=== PATIENT | female | born 1935 | race Caucasian/White ===

== ENCOUNTER 2019-04-28 11:38 | Emergency (ER) | payer MEDICARE, OTHER, SELFPAY ==
[2019-04-28 11:40] VITALS: BP 82/42; PULSE 61; RESP 18; TEMP 36.1; O2SAT 95; BMI 27.2
--- NOTE | 2019-04-28 12:14 | CT_ITS ---
STUDY: CT BRAIN WITHOUT CONTRAST REASON FOR EXAM: Female, 84 years old. Weakness RADIATION DOSAGE (If Supplied By Facility): CTDIvol = ( 44.99 ) mGy, DLP = ( 829.85 ) mGycm TECHNIQUE: Transaxial CT imaging of the brain was performed without administration of intravenous contrast material. Individualized dose optimization techniques were used for this CT. COMPARISON: No relevant priors. FINDINGS: Normal soft tissue structures. Normal calvarium. There is moderate cerebral atrophy with widening of the extra-axial spaces and ventricular dilatation. There are areas of decreased attenuation within the white matter tracts of the supratentorial brain, consistent with microvascular disease changes. Normal basal ganglia and thalami. Normal brainstem. There is mild cerebellar atrophy. There is no intracranial hemorrhage. There are no findings of an acute ischemic infarction. Normal visualized paranasal sinuses. CT/Brain/Head without Contrast IMPRESSION: Chronic involutional changes of the brain. Electronically Signed: Abel Gross DO at 13:23 EDT Tel , Service support ,
--- NOTE | 2019-04-28 12:15 | EKG12_ITS ---
Test Reason : Blood Pressure : / mmHG Vent. Rate : 060 BPM Atrial Rate : 060 BPM P-R Int : 154 ms QRS Dur : 166 ms QT Int : 528 ms P-R-T Axes : 000 -81 096 degrees QTc Int : 528 ms AV dual-paced rhythm Abnormal ECG Confirmed by ILIA ROBISON, JORDAN ([id number]), associate editor TIFFANY GABRIEL ([id number]) on 04/30/2019 1:51:49 PM Referred By: KOURTNEY Confirmed By:JORDAN MORILLO MD
[2019-04-28 12:22] LABS: Absolute Lymphocyte Count 0.89 X10^3/uL (0.83-4.51); Absolute Neutrophil Count 4.1 X10^3/uL (2.0-7.7); Basophil# 0.06 X10^3/uL; Eosinophil# 0.05 X10^3/uL; Eosinophils% 0.9 % (0-5); Hemoglobin 11.4 g/dL (12.0-15.0); Lymphocyte # 0.89 X10^3/ul (4.0); Lymphocyte % 15.4 % (19-41); Mean Corp Hgb Conc 30.8 g/dL (32-36); Mean Corpuscular Hgb 24.7 pg (27.0-32.0); Mean Corpuscular Volume 80.3 fL (81-99); Mean Platelet Vol. 10.9 fl (6.2-12.0); Monocyte# 0.64 X10^3/uL; Monocyte% 11.1 % (0-10); NRBC Flagged by Analyzer 0 % (0-5); Neutrophil # 4.14 X10^3/uL (2.7-7.7); Neutrophil % 71.4 % (47-70); Platelet Count 188 K/mm3 (150-450); RBC Distribution Width CV 16.6 % (11.6-14.6); RBC Distribution Width SD 48.8 fl (35.1-43.9); Red Blood Count 4.61 M/mm3 (4.2-5.4); White Blood Count 5.8 K/mm3 (4.4-11.0)
[2019-04-28 12:32] LABS: International Normalized Ratio 1.1; Prothrombin Time (Protime)PT. 14.3 SECONDS (11.7-14.9)
[2019-04-28 12:33] LABS: Partial Thromboplast Time 29.6 Seconds (24.1-36.2)
[2019-04-28 12:45] LABS: AST(SGOT) 48 U/L (15-37); Alanine Aminotransfer ALT/SGPT 26 U/L (13-56); Alkaline Phosphatase 142 U/L (45-117); Anion Gap 3 (5-15); BUN 15 mg/dL (7-18); Bilirubin, Direct 0.23 mg/dL (0.00-0.30); Calcium,Total 9.2 mg/dL (8.5-10.1); Chloride 107 mmol/L (98-107); Creatinine, Serum 1.25 mg/dL (0.55-1.02); EST Glomerular Filtration Rate 43 mL/min (>60); Est Glom Filt Rate - Afr Amer 53 mL/min (>60); Estimated Creatinine Clearance 36.23 ml/min; Globulin 3.9 g/dL (2.2-4.2); Glucose 103 mg/dL (74-106); Lipase 64 U/L (73-393); Potassium 4.6 mmol/L (3.5-5.1); Protein, Total 6.9 g/dL (6.4-8.2); Sodium Level 139 mmol/L (136-145)
[2019-04-28 13:04] VITALS: BP 111/57; PULSE 61; RESP 15; O2SAT 98
--- NOTE | 2019-04-28 13:06 | ED.RN ---
PT ADAMANTLY REFUSES TO GIVE URINE SAMPLE
[2019-04-28] MEDS: 0.9% Normal Saline 1,000 ML 150 ML IV (13:15)
[2019-04-28 14:00] VITALS: BP 130/68; PULSE 60; RESP 16; O2SAT 100
--- NOTE | 2019-04-28 14:52 | ED.VIS.GEN ---
History of Present Illness Chief Complaint: Dizziness Detail of Chief Complaint: Weakness Informant: Patient, Family Onset: Yesterday Narrative: Patient presents with her family. She is currently visiting [facility] to go to a [place]. Family feels that she looks pale and has been dizzy. Family states that she seemed off balance when trying to get into her wheelchair. Patient denies chest pain or shortness of breath. She wants to fall asleep easily but she states she does that because she does not sleep well at night. - Past Medical History (1) CHF (congestive heart failure) Status: Chronic (2) High cholesterol Status: Chronic (3) Hypertension Status: Chronic (4) Pacemaker Status: Chronic (5) COPD (chronic obstructive pulmonary disease) Status: Chronic (6) Anxiety Status: Chronic (7) Cervical cancer Status: Chronic Past Medical History - Allergies and Home Meds Allergies/Adverse Reactions: Allergies Penicillins [PCN] Allergy (Verified 04/28/19 11:40) Hives Sulfa (Sulfonamide Antibiotics) Allergy (Verified 04/28/19 11:40) Hives Primary Care Physician: [facility] Doctor,Out of [Primary Care Provider] - Prior records reviewed: Yes - Reviewed records available in [facility] Past Medical History: - Smoking Status: Never smoker Review of Systems General: Denies: Chills, Fever Eyes: Denies: Visual changes - left, Visual changes - right ENT: Denies: Bilateral ear pain Cardiovascular: Denies: Chest pain, Palpitations, Heart racing Respiratory: Denies: Dyspnea, Cough Gastrointestinal: Denies: Abdominal pain, Nausea, Vomiting, Diarrhea Genitourinary: Denies: Dysuria Musculoskeletal: Denies: Neck pain, Back pain, Extremity Pain Skin: Denies: Rash Neurological: Reports: Weakness - Generalized weakness. Denies: Headache Endocrine: Denies: Polyuria, Polydipsia Allergy: Denies: Uticaria Physical Exam Vital Signs/Narrative: Vital Signs Temp Pulse Resp BP Pulse Ox 04/28/19 14:00 60 16 130/68 H 100 04/28/19 13:04 61 15 111/57 L 98 04/28/19 11:40 97 F L 61 18 82/42 L 95 General: Cachectic Head: Normocephalic, Atraumatic ENT: Moist mucous membranes Cardiovascular: Regular rate, Regular rhythm Respiratory: No distress, CTA bilaterally Abdomen: Soft, Nontender, Normal bowel sounds Extremities: Nontender, Edema - 2+ and symmetric. Mild chronic venous skin changes noted. No cellulitis. Skin: Pallor Neurological: Alert, Oriented x3 Psychological: - - Anxious Diagnostic/Tx/Re-eval Impressions Brain CT 04/28/19 12:14 IMPRESSION: Chronic involutional changes of the brain. Electronically Signed: Abel Gross DO at 13:23 EDT Tel , Service support , 04/28/19 12:14 Brain/Head without Contrast [CT] Stat Laboratory Results 04/28/19 04/28/19 04/28/19 11:55 11:55 11:55 WBC 5.8 RBC 4.61 Hgb 11.4 L Hct 37.0 MCV 80.3 L MCH 24.7 L MCHC 30.8 L RDW Std Deviation 48.8 H RDW Coeff of Thad 16.6 H Plt Count 188 MPV 10.9 Immature Gran % (Auto) 0.200 Neut % (Auto) 71.4 H Lymph % (Auto) 15.4 L Swain % (Auto) 11.1 H Eos % (Auto) 0.9 Baso % (Auto) 1.0 Absolute Neuts (auto) 4.1 Absolute Lymphs (auto) 0.89 Absolute Nucleated RBC 0.00 Nucleated RBC % 0 PT 14.3 INR 1.1 APTT 29.6 Sodium 139 Potassium 4.6 Chloride 107 Carbon Dioxide 29.0 Anion Gap 3 L BUN 15 Creatinine 1.25 H Estim Creat Clear Calc 36.23 Est GFR (MDRD) Af Amer 53 L Est GFR (MDRD) Non-Af 43 L BUN/Creatinine Ratio 12.0 Glucose 103 Calcium 9.2 Total Bilirubin 0.80 Direct Bilirubin 0.23 AST 48 H ALT 26 Alkaline Phosphatase 142 H Ammonia Troponin I 0.090 H Total Protein 6.9 Albumin 3.0 L Globulin 3.9 Lipase 64 L 04/28/19 04/28/19 12:30 14:00 WBC RBC Hgb Hct MCV MCH MCHC RDW Std Deviation RDW Coeff of Thad Plt Count MPV Immature Gran % (Auto) Neut % (Auto) Lymph % (Auto) Swain % (Auto) Eos % (Auto) Baso % (Auto) Absolute Neuts (auto) Absolute Lymphs (auto) Absolute Nucleated RBC Nucleated RBC % PT INR APTT Sodium Potassium Chloride Carbon Dioxide Anion Gap BUN Creatinine Estim Creat Clear Calc Est GFR (MDRD) Af Amer Est GFR (MDRD) Non-Af BUN/Creatinine Ratio Glucose Calcium Total Bilirubin Direct Bilirubin AST ALT Alkaline Phosphatase Ammonia 16.0 Troponin I 0.083 H Total Protein Albumin Globulin Lipase - EKG Initial EKG Interpretation: - - Paced at [address] change. - Medical Decision Making Patient presented with hypotension, blood pressure 82/42. On review of prior records from clinic think her most recent doctor's appointment revealed a systolic blood pressure of 102 at that time. Patient admits that she falls asleep easily because she does not sleep well at night. She would fall asleep easily during our conversation. She denied chest pain, shortness of breath, abdominal pain, vomiting, or diarrhea. Work-up does reveal slight elevation in troponin, but I do not have prior values available to compare to here. Prior troponin values found through [facility] do not use the same type of troponin testing that we do. I am unable to directly correlate this. Her repeat troponin is coming down slightly. It does appear that her renal function has slightly worsened. She has been given IV fluids here and blood pressure has been in the 130s systolic. I had a long conversation with family at bedside. They state that she has been essentially living for this trip to [place] to see this performance tonight. She has told them multiple times this is the last thing she wants to do, then go home and . Patient is very adamant that she is not staying in the hospital. She is alert and oriented at this time. I advised her of her test results. She states that she will return if she worsens and go see her doctor soon as she returns home. ED Disposition - Plan for ED Patient: Disposition: Home or Assisted Living Diagnosis: Dehydration, Generalized weakness Instructions: DEHYDRATION (6y-Adult) Referrals: [facility] Doctor,Out of [Primary Care Provider] - Additional Instructions: Your troponin value (for your heart) is slightly elevated. (0.090 -> 0.083) Please follow-up with your doctor immediately upon returning home.
[2019-04-28 15:08] VITALS: BP 148/75; PULSE 60; RESP 16; O2SAT 99
== END 2019-04-28 15:00 | disposition home or self-care (01) ==
PROVIDERS: Emergency Provider Emergency Medicine
DX: E86.0 Dehydration (principal); I95.9 Hypotension, unspecified; R53.1 Weakness; R74.8 Abnormal levels of other serum enzymes; J44.9 Chronic obstructive pulmonary disease, unspecified; I11.0 Hypertensive heart disease with heart failure; I50.9 Heart failure, unspecified; E78.00 Pure hypercholesterolemia, unspecified; F41.9 Anxiety disorder, unspecified; Z79.82 Long term (current) use of aspirin; Z79.899 Other long term (current) drug therapy; Z88.0 Allergy status to penicillin; Z88.2 Allergy status to sulfonamides; Z95.0 Presence of cardiac pacemaker; Z85.41 Personal history of malignant neoplasm of cervix uteri
CPT/HCPCS: 36415; 70450; 80048; 80076; 82140; 83690; 84484; 85025; 85610; 85730; 93005; 96360; 96361; 99284; J7030; J7040; J7050; A4216